=== PATIENT | male | born 1985 ===

== ENCOUNTER 2017-07-10 21:41 | Emergency (ER) | payer SELFPAY ==
[2017-07-10 21:57] VITALS: BP 146/89; PULSE 83; RESP 20; TEMP 98; O2SAT 99
[2017-07-10] MEDS ORDERED: Sodium Chloride 0.9% 1,000 ML IV ONE (22:09)
[2017-07-10 22:36] LABS: BASO # 0.1 K/uL (0.0-0.2); BASO % 1.2 % (0.0-2.0); EOS # 0.3 K/uL (0.0-0.7); HEMOGLOBIN 15.4 g/dL (12.0-18.0); LYMPH # 2.3 K/uL (1.0-4.3); MEAN CELL VOLUME 80.4 fL (80.0-94.0); MEAN CORPUSCULAR HEMOGLOBIN 27.8 pg (27.0-31.0); MEAN CORPUSCULAR HGB CONC 34.5 g/dL (33.0-37.0); MEAN PLATELET VOLUME 8.8 fL (7.2-11.7); MONO # 0.8 K/uL (0.0-0.8); MONO % 7.1 % (0.0-10.0); NEUT # 7.8 K/uL (1.8-7.0); NEUT % 68.7 % (50.0-75.0); NRBC % 0.3 % (0.0-2.0); RBC 5.53 Mil/uL (4.40-5.90); WHITE BLOOD COUNT 11.4 K/uL (4.8-10.8)
[2017-07-10 22:37] LABS: URINE BILIRUBIN NEGATIVE (NEGATIVE); URINE BLOOD NEGATIVE (NEGATIVE); URINE CLARITY Clear (Clear); URINE COLOR Yellow (YELLOW); URINE GLUCOSE (UA) NORMAL (Normal); URINE LEUKOCYTE ESTERASE NEG Leu/uL (Negative); URINE PROTEIN NEGATIVE (NEGATIVE); URINE UROBILINOGEN NORMAL mg/dL (0.2-1.0)
[2017-07-10 22:44] LABS: ALB/GLOB RATIO 1.4 (1.0-2.1); ALBUMIN 4.8 g/dL (3.5-5.0); ALT/SGPT 30 U/L (21-72); AST/SGOT 21 U/L (17-59); BLOOD UREA NITROGEN 14 mg/dL (9-20); CALCIUM 9.5 mg/dl (8.6-10.4); GFR AFRICAN-AMERICAN > 60; GFR NON-AFRICAN AMERICAN > 60; LIPASE 53 U/L (23-300)
[2017-07-10] MEDS ORDERED: Azithromycin 500mg/250ML NS 500 MG/250 ML BAG IV ONE (23:15)
--- NOTE | 2017-07-10 23:16 | C.PDOC ---
History Of Present Illness 31 year old male presents to the ER with a complaint of left sided pain "under my ribs" that radiates to the back since yesterday that has worsened today. Patient states the pain worsens with movement. Also notes he has had a cough for the past 1-2 weeks. Denies fever, hematuria, chest pain, headache, trauma, rash, heavy lifting, or SOB. Patient has not taken any medication for his symptoms. Time Seen by Provider: 07/10/17 22:09 Chief Complaint (Nursing): Male Genitourinary History Per: Patient History/Exam Limitations: no limitations Onset/Duration Of Symptoms: Days Current Symptoms Are (Timing): Still Present Quality Of Discomfort: Unable To Describe Associated Symptoms: Other ((+) cough. (-) SOB, Rash). denies: Fever, Urinary Symptoms Alleviating Factors: None Recent travel outside of the [place]: No Past Medical History Reviewed: Historical Data, Nursing Documentation, Vital Signs Vital Signs: Last Vital Signs Temp 98.0 F 07/10/17 21:55 Pulse 83 07/10/17 21:55 Resp 20 07/11/17 00:08 BP 146/89 07/10/17 21:55 Pulse Ox 99 07/11/17 00:32 Surgical History: Cholecystectomy Family History: States: Unknown Family Hx - Social History Hx Alcohol Use: No Hx Substance Use: No - Immunization History Hx Tetanus Toxoid Vaccination: No Hx Influenza Vaccination: No Hx Pneumococcal Vaccination: No Review Of Systems Constitutional: Negative for: Fever Respiratory: Positive for: Cough. Negative for: Shortness of Breath Genitourinary: Negative for: Hematuria Musculoskeletal: Positive for: Other (Left sided pain) Skin: Negative for: Rash Physical Exam - Physical Exam Appears: Non-toxic, No Acute Distress Skin: Normal Color, Warm, Dry Head: Atraumatic, Normacephalic Eye(s): bilateral: Normal Inspection, EOMI Nose: Normal Oral Mucosa: Moist Neck: Normal ROM, Supple Chest: Symmetrical, No Tenderness Cardiovascular: Rhythm Regular Respiratory: Normal Breath Sounds, No Rales, No Rhonchi, No Wheezing Gastrointestinal/Abdominal: Soft, Tenderness (LUQ), No Guarding, No Rebound Back: No Vertebral Tenderness, Other (Left flank tenderness) Neurological/Psych: Oriented x3, Normal Speech ED Course And Treatment - Laboratory Results Result Diagrams: 07/10/17 22:27 07/10/17 22:27 O2 Sat by Pulse Oximetry: 99 (Room air) Pulse Ox Interpretation: Normal - CT Scan/US CT abd /pelvis Other Rad Studies (CT/US): Read By Radiologist, Radiology Report Reviewed CT/US Interpretation: ccession No. : [id number]. Patient Name / ID : MAGALIE MARIE D / [id number]. Exam Date : 07/10/2017 22:32:16 ( Approved ). Study Comment : Sex / Age : M / 31Y. Creator : Olaf Srivastava MD. Dictator : Olaf Srivastava MD. It Service Manager : Form Setter Helper : Olaf Srivastava MD. Approver2 : Report Date : 07/11/2017 08:45:35. My Comment : . PROCEDURE: CT Abdomen and Pelvis without intravenous contrast. HISTORY: Abdominal pain. COMPARISON: None. TECHNIQUE: Multiple contiguous axial images were performed through the abdomen and pelvis without the use of intravenous contrast. Radiation dose: Total exam DLP = 238 mGy-cm. This CT exam was performed using one or more of the following dose reduction techniques : Automated exposure control, adjustment of the mA and/or kV according to patient size, and/or use of iterative reconstruction technique. FINDINGS: LOWER THORAX: Small asymmetric left lower lung hazy opacities suggestive for early developing infiltrate. Trace amount of left pleural effusion. LIVER: Unremarkable. No gross lesion or ductal dilatation. GALLBLADDER AND BILE DUCTS : Prior cholecystectomy. PANCREAS: Unremarkable. No gross lesion or ductal dilatation. SPLEEN: Unremarkable. ADRENALS: Mild nodular thickening of the right adrenal gland. KIDNEYS AND URETERS: 1.3 centimeter low attenuation lesion in the midpole of the right kidney demonstrating a Hounsfield unit attenuation of 6 suggestive for a cyst. VASCULATURE: Unremarkable. No aortic aneurysm. BOWEL: Unremarkable. No obstruction. No gross mural thickening. Fecal retention in the colon. APPENDIX: Unremarkable. Normal appendix. PERITONEUM: Unremarkable. No free fluid. No free air. LYMPH NODES: Few shotty para-aortic and inguinal lymph nodes. Few shotty mesenteric lymph nodes. BLADDER: Underdistended urinary bladder. REPRODUCTIVE: Unremarkable. BONES: No acute fracture. OTHER FINDINGS: Mild calcification within the aorta. IMPRESSION: Small left lower lung infiltrate with small amount of adjacent pleural fluid. Clinical correlation. Additional findings as above. Progress Note: CT abd/pel, blood work, and urinalysis ordered. IV fluids, toradol, and zithromax administered. On reevaluation, patient is resting comfortably in no distress, abdomen remain soft and nontender, he is afebrile and tolerating PO; lab and imaging results discussed patient, he was given copies of his results, advised to follow up with PMD and given return precautions. Disposition - Disposition Disposition: HOME/ ROUTINE Disposition Time: 23:15 Condition: STABLE Additional Instructions: Follow up with your primary medical doctor or clinic in 2-5 days for further evaluation. Take medications as prescribed. Return to the emergency department at any time if symptoms persist or worsen. Prescriptions: Azithromycin [Zithromax] 250 mg PO DAILY #4 tab Benzonatate [Tessalon Perle] 100 mg PO TID PRN #15 capsule PRN Reason: Cough Instructions: Pneumonia, Adult (DC) Forms: [facility] (Polish) - Clinical Impression Clinical Impression: Pneumonia - PA / ASSISTANT SITE MANAGER / Resident Statement MD/DO has reviewed & agrees with the documentation as recorded. - Scribe Statement The provider has reviewed the documentation as recorded by the Scribe Shaquille Miles All medical record entries made by the Scribe were at my direction and personally dictated by me. I have reviewed the chart and agree that the record accurately reflects my personal performance of the history, physical exam, medical decision making, and the department course for this patient. I have also personally directed, reviewed, and agree with the discharge instructions and disposition.
--- NOTE | 2017-07-11 08:47 | CT ---
PROCEDURE: CT Abdomen and Pelvis without intravenous contrast HISTORY: Abdominal pain COMPARISON: None. TECHNIQUE: Multiple contiguous axial images were performed through the abdomen and pelvis without the use of intravenous contrast. Radiation dose: Total exam DLP = 238 mGy-cm. This CT exam was performed using one or more of the following dose reduction techniques: Automated exposure control, adjustment of the mA and/or kV according to patient size, and/or use of iterative reconstruction technique. FINDINGS: LOWER THORAX: Small asymmetric left lower lung hazy opacities suggestive for early developing infiltrate. Trace amount of left pleural effusion. LIVER: Unremarkable. No gross lesion or ductal dilatation. GALLBLADDER AND BILE DUCTS: Prior cholecystectomy. PANCREAS: Unremarkable. No gross lesion or ductal dilatation. SPLEEN: Unremarkable. ADRENALS: Mild nodular thickening of the right adrenal gland. KIDNEYS AND URETERS: 1.3 centimeter low attenuation lesion in the midpole of the right kidney demonstrating a Hounsfield unit attenuation of 6 suggestive for a cyst. VASCULATURE: Unremarkable. No aortic aneurysm. BOWEL: Unremarkable. No obstruction. No gross mural thickening. Fecal retention in the colon. APPENDIX: Unremarkable. Normal appendix. PERITONEUM: Unremarkable. No free fluid. No free air. LYMPH NODES: Few shotty para-aortic and inguinal lymph nodes. Few shotty mesenteric lymph nodes. BLADDER: Underdistended urinary bladder. REPRODUCTIVE: Unremarkable. BONES: No acute fracture. OTHER FINDINGS: Mild calcification within the aorta. IMPRESSION: Small left lower lung infiltrate with small amount of adjacent pleural fluid. Clinical correlation. Additional findings as above. These findings were preliminarily reported at 11:05 p.m. on 07/10/[address] Dee Choi from [facility].
== END 2017-07-11 00:08 | disposition home or self-care (01) ==
LOC: C.ER 21:41
DX: J18.9 Pneumonia, unspecified organism (principal)
CPT/HCPCS: 74176; 80053; 81001; 83690; 85025; 96361; 96365; 96375; 99284; J0456; J1885; J7030